=== PATIENT | female | born 1980 | race Caucasian/White ===

== ENCOUNTER → 2017-11-03 11:36 | Outpatient (CLI) | payer OTHER, MEDICAID, SELFPAY ==
[2017-11-09 13:05] LABS: AFP, Serum 50.2 ng/mL; Calc Gestational Age 19.3; Maternal Weight 220 lbs; Number of Fetuses 1; Prev Pregnancies Down Syndrome NOT GIVEN
== END ==
PROVIDERS: PCP Physician Assistant; Visit Provider Specialist
DX: Z3A.19 19 weeks gestation of pregnancy (principal)
CPT/HCPCS: 36415; 82105

== ENCOUNTER → 2017-11-24 14:27 | Outpatient (CLI) | payer OTHER, MEDICAID, SELFPAY ==
--- NOTE | 2017-11-24 14:28 | DI.US.S_ITS ---
PROCEDURE: US OB >= 14 WEEKS FETUS INDICATIONS: anatomic survey OUTSIDE/PRIOR DATING DATA: Last menstrual period (LMP): Not indicated. First dating scan (date and location): 08/30/2017. Estimated date of delivery (JUAN MIGUEL) from first dating scan: 03/22/2018. TECHNIQUE: Real-time scanning was performed of the fetus, with image documentation and biometric measurements. Endovaginal scanning: Not performed COMPARISON: [facility], , OB >= 14 WEEKS FETUS, 11/03/2017, 11:26. FINDINGS: General: A single living intrauterine gestation is present. Presentation: Breech Placenta: Placental position is anterior, without previa. Amniotic fluid index: 14.3 cm, normal range is 5-24 cm. heart rate: 144 beats per minute. Maternal cervical canal: 5.2 cm long. Normal lower limit is 2.5 cm. biometrics: Biparietal diameter: 5.5 CM (22 weeks and 6 days) Head circumference: 21 CM (23 weeks and 0 days) Abdominal circumference: 18.6 CM (23 weeks and 3 days) Femur length: 3.9 CM on (22 weeks and 3 days). Estimated gestational age from initial scan: 23 weeks and one day. Composite gestational age from present scan: 23 weeks and 0 days Estimated weight and percentile: 549 g (33%) Measurement variability for biometric dating: +/- 7 days from 14 weeks to 15 weeks 6 days gestation, +/- 10 days from 16 weeks to 21 weeks 6 days gestation, +/- 2 weeks from 22 weeks to 27 weeks 6 days gestation, +/- 3 weeks for 28 weeks gestation or later. weight reference: 4500 g or EFW >90/95% is considered macrosomia or large for gestational age. EFW <10% is small for gestational age. EFW 5% or less is considered intra-uterine growth restriction. Anatomic survey: Neuro: Ventricles are non-dilated at less than 10 mm. Cisterna magna is normal at 3-11 mm. Cerebellum is normal in size and morphology. Nuchal skin fold: Normal at less than 6 mm between 14-21 weeks gestational age. Face: Not well seen due to lie. Spine: No evidence for spina bifida. Heart: 4-chambered heart is present, with normal ventricular outflow tracts. Diaphragm: Diaphragm is intact. Stomach: Left-sided stomach is present. Kidneys: No hydronephrosis. Normal is less than 5 mm in 2nd trimester, less than 7 mm in 3rd trimester. Cord: 3-vessel cord has orthotopic insertion. Bladder: Normal in size. Extremities: All 4 extremities identified. IMPRESSION: 1. Single intrauterine gestation with estimated gestational age of 23 weeks and 1 day. 2. Facial profile is poorly seen due to lie. Recommend attention to this finding on followup studies. Otherwise sonographically normal anatomy. Dictated by: Fareed Camarillo M.D. on 11/24/2017 at 16:21 Approved by: Fareed Camarillo M.D. on 11/24/2017 at 16:27
== END ==
PROVIDERS: PCP Physician Assistant; Visit Provider Specialist
DX: Z36.89 Encounter for other specified antenatal screening (principal); Z3A.23 23 weeks gestation of pregnancy
CPT/HCPCS: 76811

== ENCOUNTER → 2018-03-02 10:54 | Outpatient (CLI) | payer OTHER, MEDICAID, SELFPAY ==
[2018-03-03 13:58] LABS: Strep Grp B PCR POS for Grp B Strep
== END ==
PROVIDERS: Visit Provider Specialist
DX: Z34.93 Encounter for supervision of normal pregnancy, unspecified, third trimester (principal)
CPT/HCPCS: 87653

== ENCOUNTER 2018-03-28 07:44 | Inpatient (IN) | payer OTHER, MEDICAID, SELFPAY ==
--- NOTE | 2018-03-28 | PATH_ITS ---
[facility] Accession Number: [id number] . 01 Material submitted: . BILATERAL FALLOPIAN TUBES . 02 Diagnosis: Bilateral Fallopian Tubes, Bilateral Tubal Ligation: Two non-fimbriated fallopian tube segments identified at gross examination. Cross sections present on H/E stains. MRV/04/02/2018 . 02 Electronically signed: . Reva Gabriel MD, Pathologist NPI- [id number] . 01 Gross description: . Received in formalin, labeled bilateral fallopian tubes, are two nonfimbriated segments of fallopian tube (segment #1; length-0.9 cm diameter-0.5 cm; segment #2: length-1.0 cm, diameter-0.6 cm) with acharya-purple smooth shiny serosa and acharya unremarkable lumens. No nodules, masses or lesions are identified. Both are serially sectioned and entirely submitted in cassette A1. ([id number]) /MRV . 02 Pathologist provided ICD-10: Z30.2 . 02 CPT . 192262 Performed at: 01 [facility] [address], [place], [place] [id number] MD Ga Patton MD Phone: [phone] Performed at: 02 [facility] [address] [place], [place] [id number] MD Roberta Caballero MD Phone: [phone]
[2018-03-28] MEDS: LACTATED RINGERS 1,000 ML 100 ML IV ×2 (08:30→13:36)
[2018-03-28] MEDS: PENICILLIN G POTASSIUM 5,000,000 UNIT in DEXTROSE 5% IN WATER 250 ML IV (08:30)
[2018-03-28 08:32] LABS: Add Manual Diff / Slide Review NO; Basophils Percent Auto 0.7 % (0-2); Hematocrit 34.6 % (36-46); Hemoglobin 11.2 g/dL (12.0-16.0); Lymphocytes Percent Auto 17.8 % (25-40); Mean Corpuscular HGB Conc 32.4 % (30-36); Mean Corpuscular Hemoglobin 24.7 PG (26-34); Mean Corpuscular Volume 76.2 fL (80-100); Monocytes Percent Auto 7.9 % (3-14); Neutrophils Absolute Auto 6500 /uL (3000-5900); Neutrophils Percent Auto 73.6 % (50-75); Platelet Count 243 X10^3/uL (150-400); Red Blood Cell Count 4.54 X10^6/uL (4.0-5.2); Red Cell Distribution Width 15.4 % (11.6-14.8); White Blood Cell Count 8.8 X10^3/uL (4.5-11.0)
[2018-03-28] MEDS: OXYTOCIN PREMIX 30 UNIT/500 ML PLAST..BAG IV (08:38)
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
[2018-03-28] MEDS: PENICILLIN G POTASSIUM 3,000,000 UNIT/50 ML FROZ.PIGGY 100 UNIT IV (12:15)
[2018-03-28] MEDS: fentaNYL 100 MCG/2 ML INJ IV (12:45)
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
[2018-03-28] MEDS: LACTATED RINGERS 1,000 ML 42 ML IV (17:10)
[2018-03-28] MEDS: BUPIVACAINE 0.5% W/ EPI (PF) VIAL 30 ML INJ (17:47)
[2018-03-28 17:53] VITALS: BP 100/53
[2018-03-28 18:06] VITALS: BP 116/67; PULSE 111; RESP 11; TEMP 36.8; O2SAT 97
[2018-03-28 18:11] VITALS: BP 112/67; PULSE 108; RESP 11; O2SAT 98
[2018-03-28 18:16] VITALS: BP 113/68; PULSE 93; RESP 10; O2SAT 99
[2018-03-28 18:21] VITALS: BP 106/68; PULSE 90; RESP 8; O2SAT 98
[2018-03-28 18:26] VITALS: BP 108/67; PULSE 78; RESP 10; O2SAT 98
--- NOTE | 2018-03-28 18:28 | SUR.PHASEI ---
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
[2018-03-28] MEDS: LANOLIN OINT 7 GM 1 APPLIC TOP (21:46)
[2018-03-28] MEDS: DERMOPLAST SPRAY 20% 60 ML 1 SPRAY TOP (21:46)
[2018-03-29 00:28] VITALS: TEMP 36.9
[2018-03-29] MEDS: IBUPROFEN 600 MG TABLET PO ×2 (00:28→06:26)
[2018-03-29 01:00] VITALS: TEMP 36.9
[2018-03-29 06:26] VITALS: TEMP 36.9
[2018-03-29] MEDS: DOCUSATE 250 MG CAPSULE PO (08:48)
[2018-03-29] MEDS: FERROUS GLUCONATE 324 MG TABLET PO (08:48)
[2018-03-29] MEDS: PRENATAL VIT,CALC/IRON/FOLIC 1 TABLET 1 TAB PO (08:48)
[2018-03-29 12:09] VITALS: BP 108/67; PULSE 78; RESP 18; TEMP 36.9
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
--- NOTE | 2018-04-06 11:26 | PM.GYNOP.1 ---
Operative Date/Time/Diagnoses Date of procedure: 03/28/18 Time of procedure: 18:15 Pre-op diagnosis: Multiparity Desires permanent sterilization Procedure: Procedures Operation Date: 03/28/18 16:00 Actual Procedures Side Surgeon p Post Bilateral Tubal Ligation Rosario Hirsch MD Indications: Multiparity Desires permanent sterilization Surgeon: Rosario Hirsch Anesthesia Type: General Operative Notes Findings: Fundus at U -1 Normal uterus, tubes, and ovaries Closure Type: primary Specimen(s): portion of left tube and portion of right tube Estimated blood loss (mL): 5 Blood products transfused: none Procedure in detail: After informed consent was obtained, the patient was taken to the operating room where she was placed in the dorsal supine position. After adequate general endotracheal anesthesia was achieved she was prepped and draped in the usual sterile fashion. 6 cc of 0.5% Marcaine with epinephrine were injected in the umbilical fold and a 2 cm incision was made. This was carried down to the fascia and the fascia was nicked in the midline. The fascial incision was extended bilaterally with the Higgins scissors. The peritoneum was grasped between 2 hemostats and entered sharply with the Metzenbaum scissors. The uterus found to be at U -1. The left tube was grasped and carried out to the fimbriated end. 2[address] to the distal end a with 3 cm segment of tube was ligated x2 with 0 plain chromic. A 1-1/2 cm segment of tube was excised. The ends of the tube were cauterized for hemostasis. Hemostasis was achieved. This was repeated on the patient's right tube. The tubes were returned to the abdomen. The fascia was reapproximated using 0 Vicryl in a running fashion. The subcutaneous layer was closed with 3 O Vicryl with 2 simple interrupted sutures. The skin was closed with 4 0 undyed Vicryl in a subcuticular fashion. Steri-Strips, 2 x 2, and op site was placed. Sponge, lap, and instrument counts were correct x2. The patient tolerated the procedure well, and was taken to PACU in stable condition. Complications: none Post-operative Condition: stable Disposition: PACU Plan for aftercare: center after recovery
== END 2018-03-29 14:00 | disposition home or self-care (01) | DRG 541 ==
PROVIDERS: Obstetrics & Gynecology; Specialist; Admitting Provider Family Medicine; Visit Provider Family Medicine
PROC: 0UB70ZZ Excision of Bilateral Fallopian Tubes, Open Approach (ICD-10-PCS; CPT 58605; principal; 2018-03-28 16:00)
DX: O9A.313 Physical abuse complicating pregnancy, third trimester (principal); O99.824 Streptococcus B carrier state complicating childbirth; Z3A.40 40 weeks gestation of pregnancy; Z37.0 Single live birth; O70.1 Second degree perineal laceration during delivery; O69.81X0 Labor and delivery complicated by cord around neck, without compression, not applicable or unspecified; Z30.2 Encounter for sterilization
CPT/HCPCS: 01967; 59050; 59409; 85025; 86850; 86900; 86901; G0379; J1100; J1885; J2405; J2540; J2590; J2704; J3010

== ENCOUNTER → 2019-11-22 13:06 | Outpatient (CLI) | payer OTHER, MEDICAID, SELFPAY ==
[2019-11-22 13:53] LABS: Add Manual Diff / Slide Review NO; Basophils Absolute Auto 0 /uL (0-100); Basophils Percent Auto 0.5 % (0-2); Eosinophils Absolute Auto 0 /uL (0-450); Hematocrit 43.7 % (36-46); Hemoglobin 14.9 g/dL (12.0-16.0); Lymphocytes Absolute Auto 1700 /uL (1100-4500); Lymphocytes Percent Auto 27.3 % (25-40); Mean Corpuscular HGB Conc 34.2 % (30-36); Mean Corpuscular Hemoglobin 29.9 PG (26-34); Mean Corpuscular Volume 87.4 fL (80-100); Monocytes Absolute Auto 500 /uL (0-900); Monocytes Percent Auto 7.6 % (3-14); Neutrophils Absolute Auto 3900 /uL (1500-7000); Neutrophils Percent Auto 64.6 % (50-75); Platelet Count 219 X10^3/uL (150-400); Red Blood Cell Count 4.99 X10^6/uL (4.0-5.2); Red Cell Distribution Width 13.3 % (11.6-14.8)
[2019-11-22 14:47] LABS: Alanine Aminotransferase 24 IU/L (<35); Albumin 4.7 g/dL (3.5-5.0); Albumin Globulin Ratio 1.9 (1.0-2.8); Alkaline Phosphatase 53 U/L (38-126); Aspartate Aminotransferase 28 IU/L (14-36); BUN Creatinine Ratio 21.4 (6-22); Bilirubin Total 0.6 mg/dL (0.2-1.3); Blood Urea Nitrogen 18 mg/dL (7-17); Calcium 10.3 mg/dL (8.4-10.2); Carbon Dioxide 29 mmol/L (22-32); Chloride 102 mmol/L (98-107); Estimated Glomerular Filt Rate > 60.0 mL/min (>60); Globulin 2.5 g/dL (1.7-4.1); Glucose 95 mg/dL (70-100); HEMOLYSIS < 15 (0-50); Potassium 4.5 mmol/L (3.4-5.1); Sodium 139 mmol/L (137-145); Total Protein 7.2 g/dL (6.3-8.2)
[2019-11-22 15:17] LABS: Thyroid Stimulating Hormone 1.51 uIU/mL (0.47-4.68)
== END ==
PROVIDERS: PCP Family Medicine; Referring Provider Family Medicine; Visit Provider Family Medicine
DX: I95.9 Hypotension, unspecified (principal)
CPT/HCPCS: 36415; 80053; 84439; 84443; 84481; 85025

== ENCOUNTER → 2020-08-05 14:44 | Outpatient (CLI) | payer OTHER, MEDICAID, SELFPAY ==
--- NOTE | 2020-08-05 14:46 | DI.RAD.S_ITS ---
PROCEDURE: XR LUMBAR SPINE 2-3V INDICATIONS: low back pain with sciatica TECHNIQUE: 3 views of the lumbar spine were acquired. COMPARISON: None. FINDINGS: Bones: 5 [id number] vertebrae are present. There is mildly abnormal bony alignment with convex leftward scoliosis centered at L3-4. No vertebral body compression fractures. No suspicious bony lesions. Soft tissues: Overlying bowel gas pattern is normal. No suspicious soft tissue calcifications. IMPRESSION: A small degree of convex leftward scoliosis is centered at L3-4 and there is mild degenerative disc disease L5-S1 with mild to moderate facet osteoarthritis at that level. Dictated by: Presley Ramirez M.D. on 08/05/2020 at 15:30 Approved by: Presley Ramirez M.D. on 08/05/2020 at 15:31
== END ==
PROVIDERS: PCP Family Medicine; Referring Provider Family Medicine; Visit Provider Family Medicine
DX: M41.86 Other forms of scoliosis, lumbar region (principal); M47.26 Other spondylosis with radiculopathy, lumbar region; M51.16 Intervertebral disc disorders with radiculopathy, lumbar region
CPT/HCPCS: 72100

== ENCOUNTER 2021-03-02 21:19 | Emergency (ER) | payer OTHER, MEDICAID, SELFPAY ==
[2021-03-02 21:27] VITALS: BP 122/73; BP 122/77; PULSE 90; PULSE 92; RESP 14; RESP 22; O2SAT 100; O2SAT 99
[2021-03-02 21:30] VITALS: PULSE 90; RESP 12; O2SAT 99
[2021-03-02 21:32] VITALS: BP 122/73; PULSE 92; RESP 12; TEMP 36.9; O2SAT 99
--- NOTE | 2021-03-02 21:46 | DI.RAD.S_ITS ---
PROCEDURE: XR CHEST 1V INDICATIONS: chest pain TECHNIQUE: One view of the chest was acquired. COMPARISON: [facility], CR, XR LUMBAR SPINE 2-3V, 08/05/2020, 14:51. FINDINGS: Surgical changes and devices: None. Lungs and pleura: Lungs are clear. No pleural effusions or pneumothorax. Mediastinum: Mediastinal contours appear normal. Heart size is normal. Bones and chest wall: No suspicious bony lesions. Overlying soft tissues appear unremarkable. Mild rightward curvature of the thoracic spine. IMPRESSION: No acute cardiopulmonary abnormality Dictated by: Francis Romano M.D. on 03/02/2021 at 22:05 Approved by: Francis Romano M.D. on 03/02/2021 at 22:06
--- NOTE | 2021-03-02 21:49 | ED.CHESTPAIN ---
HPI - Chest Pain General Chief Complaint: Chest Pain Stated Complaint: chest pain, irratic heart rate, fatigue Time Seen by Provider: 03/02/21 21:38 Source: patient Mode of arrival: Ambulatory History of Present Illness HPI narrative: 40-year-old female who is here for evaluation of a couple days of some irratic heart rate which she describes as her going fast and then slow. Fatigue, chest discomfort, headaches. She has had history is of arrhythmias in the past. Has seen cardiology. There was some discussion about an ablation but she decided not to proceed with his procedure. Related Data Home Medications Medication Instructions Recorded Confirmed [MAGNESIUM COMPLEX] 1 tab PO QDAY #0 07/27/17 08/05/20 [VITAMIN C] 2 cap PO QDAY #0 07/27/17 08/05/20 [VITAMIN D3] PO QDAY #0 07/27/17 08/05/20 Previous Rx's Medication Instructions Recorded celecoxib 100 mg capsule 100 mg PO BID #30 cap 08/05/20 Allergies Allergy/AdvReac Type Severity Reaction Status Date / Time metoprolol [METOPROLOL] Allergy Intermediate FULL BODY Verified 08/05/20 14:15 RASH AND H/A Review of Systems Constitutional Constitutional: Reports system reviewed and no additional complaints, except as documented, Denies fever(s) and Reports headache(s) Eyes Eyes: Denies change in vision ENT Ears, Nose, Mouth, and Throat: Reports system reviewed and no additional complaints, except as documented and Reports headache(s) Cardiovascular Cardiovascular: Reports as per HPI and Reports system reviewed and no additional complaints, except as documented Respiratory Respiratory: Reports as per HPI and Reports system reviewed and no additional complaints, except as documented Gastrointestinal Gastrointestinal: Reports as per HPI and Reports system reviewed and no additional complaints, except as documented Genitourinary Genitourinary: Reports system reviewed and no additional complaints, except as documented Musculoskeletal Musculoskeletal: Reports system reviewed and no additional complaints, except as documented Integumentary/Breasts Skin/Breast: Reports system reviewed and no additional complaints, except as documented Neurologic Neurologic: Reports system reviewed and no additional complaints, except as documented and Reports headache(s) Psychiatric Psychiatric: Reports system reviewed and no additional complaints, except as documented Hematologic/Lymphatic On Anticoagulants: No Patient History Medical History Dizziness Venous insufficiency of both lower extremities Family History Father No problems noted. Grandfather Diabetes mellitus Grandmother Hypothyroidism Stroke Mother No problems noted. Grandmother No problems noted. Family/Other Hypothyroidism Family/Other No problems noted. Social History household members: family and children Smoking Status: Never smoker Smoking Status: Never smoker Exam Initial Vital Signs Initial Vital Signs: Vital Signs Pulse Rate 92 H 03/02/21 21:27 Respiratory Rate 22 03/02/21 21:27 Blood Pressure 122/77 03/02/21 21:27 Pulse Oximetry 100 03/02/21 21:27 Const General: cooperative, healthy appearing and comfortable HENMT Head: normal to inspection and normocephalic Neck Neck: normal visual inspection Chest Chest: normal inspection of the chest Resp Effort & Inspection: normal respiratory effort Auscultation: clear to auscultation bilaterally Cardio Rate: regular rate Rhythm: regular rhythm GI Inspection: normal to inspection Palpation: soft Back/Spine/Pelvis Back: normal to inspection Skin Lesions: no lesions Rashes: no rashes Neuro General: patient alert, patient awake and patient oriented x3 Extrem General: normal to inspection and capillary refill normal Psych Appearance: grossly normal and well kempt Course Orders Ordered: ED Orders 03/02/21 21:40 Complete Blood Count AUTO DIFF Stat Comprehensive Metabolic Panel Stat Lipase Stat Troponin & CK Cardiac Panel Stat 03/02/21 21:45 EKG-12 Lead Stat 03/02/21 21:46 XR chest 1V Stat Vital Signs Vital signs: Vital Signs - 8 hr 03/02/21 21:32 03/02/21 22:00 03/02/21 22:30 Temperature 98.5 F Pulse Rate 92 H 75 78 Respiratory Rate 12 16 12 Blood Pressure [Left Arm] 122/73 Pulse Oximetry 99 97 97 MDM - Chest Pain Lab Data Attestation: I reviewed the patient's lab results. Result diagrams: 03/02/21 21:40 03/02/21 21:40 Labs: Lab Results 03/02/21 03/02/21 Range/Units 21:40 21:40 WBC 7.4 (4.5-11.0) X10^3/uL RBC 5.08 (4.0-5.2) X10^6/uL Hgb 14.9 (12.0-16.0) g/dL Hct 43.9 (36-46) % MCV 86.4 (80-100) fL MCH 29.4 (26-34) PG MCHC 34.0 (30-36) % RDW 13.7 (11.6-14.8) % Plt Count 216 (150-400) X10^3/uL Neut % (Auto) 72.2 (50-75) % Lymph % (Auto) 17.8 L (25-40) % [place] % (Auto) 7.8 (3-14) % Eos % (Auto) 0.4 L (2-4) % Baso % (Auto) 1.8 (0-2) % Neut # (Auto) 5400 (8080-4381) /uL Lymph # (Auto) 1300 (2833-6576) /uL [place] # (Auto) 600 (0-900) /uL Eos # (Auto) 0 (0-450) /uL Baso # (Auto) 100 (0-100) /uL Sodium 141 (137-145) mmol/L Potassium 3.7 (3.4-5.1) mmol/L Chloride 103 (98-107) mmol/L Carbon Dioxide 28 (22-32) mmol/L BUN 18 H (7-17) mg/dL Creatinine 1.09 H (0.52-1.04) mg/dL Estimated GFR 55.6 L (>60) mL/min BUN/Creatinine Ratio 16.5 (6-22) Glucose 111 H (70-100) mg/dL Calcium 9.7 (8.4-10.2) mg/dL Total Bilirubin 0.4 (0.2-1.3) mg/dL AST 23 (14-36) IU/L ALT 19 (<35) IU/L Alkaline Phosphatase 50 (38-126) U/L Total Creatine Kinase 69 (30-135) U/L CK-MB (CK-2) TNP CK-MB (CK-2) Rel Index TNP Troponin I < 0.012 (0.01-0.034) ng/mL Total Protein 8.1 (6.3-8.2) g/dL Albumin 4.6 (3.5-5.0) g/dL Globulin 3.5 (1.7-4.1) g/dL Albumin/Globulin Ratio 1.3 (1.0-2.8) Lipase 96 (23-300) U/L Imaging Data Chest x-ray: Radiologist's Impression: [address] [id number] ReportSigned Patient: Roberta Bo MMR#: [id number]: 1980Acct:[id number]/Sex: 40 / FDate of Service: 03/02/21Loc: EDAccession Number: [id number] Procedure: XR chest 1V Ordering Provider: Judd Lawrence D.O. PROCEDURE: XR CHEST 1V INDICATIONS: chest pain TECHNIQUE: One view of the chest was acquired. COMPARISON: [facility], CR, XR LUMBAR SPINE 2-3V, 08/05/2020, 14:51. FINDINGS: Surgical changes and devices: None. Lungs and pleura: Lungs are clear. No pleural effusions or pneumothorax. Mediastinum: Mediastinal contours appear normal. Heart size is normal. Bones and chest wall: No suspicious bony lesions. Overlying soft tissues appear unremarkable. Mild rightward curvature of the thoracic spine. IMPRESSION: No acute cardiopulmonary abnormality Dictated by: Francis Romano M.D. on 03/02/2021 at 22:05 Approved by: Francis Romano M.D. on 03/02/2021 at 22:06 ECG Data Attestation: I personally reviewed and interpreted this ECG as follows: Prior ECG tracings: available for review Interpretation: Sinus rhythm Ventricular rate 96 Normal axis Normal QRS Normal QTC Nonspecific ST T wave changes MDM Narrative Medical decision making narrative: Labs are unremarkable come EKG is unremarkable, chest x-ray is unremarkable, physical exam is unremarkable, I did discuss with her regarding her symptoms. Did discuss the limitations of the EKG and cardiac monitoring here stating that I would not be able to tell exactly what her heart rate and rhythm were when she was feeling the palpitations a couple days ago. 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 I feel patient can be safely discharged home without further workup here in the emergency department. She was given return precautions and follow-up instructions. She expressed understanding and agreement Discharge Plan Departure Patient Disposition: Home Clinical Impression: Atypical chest pain, Palpitations Instructions: DI for Atypical Chest Pain Activity Restrictions/Additional Instructions: Your workup here in the emergency department is very reassuring. I recommend that you contact your primary doctor for a follow-up and also recommend that you follow-up with Cardiology. Return to the emergency department for any new or worsening symptoms Prescriptions: No Action celecoxib 100 mg capsule 100 mg PO BID Qty: 30 RF: 2 [VITAMIN C] 2 cap PO QDAY Qty: 0 RF: 0 [VITAMIN D3] PO QDAY Qty: 0 RF: 0 [MAGNESIUM COMPLEX] 1 tab PO QDAY Qty: 0 RF: 0 Referrals: Carmita Montes De Oca MD [Primary Care Provider] -
[2021-03-02 21:58] LABS: Add Manual Diff / Slide Review NO; Alanine Aminotransferase 19 IU/L (<35); Albumin 4.6 g/dL (3.5-5.0); Albumin Globulin Ratio 1.3 (1.0-2.8); Alkaline Phosphatase 50 U/L (38-126); Aspartate Aminotransferase 23 IU/L (14-36); BUN Creatinine Ratio 16.5 (6-22); Basophils Absolute Auto 100 /uL (0-100); Basophils Percent Auto 1.8 % (0-2); Bilirubin Total 0.4 mg/dL (0.2-1.3); Blood Urea Nitrogen 18 mg/dL (7-17); Calcium 9.7 mg/dL (8.4-10.2); Carbon Dioxide 28 mmol/L (22-32); Chloride 103 mmol/L (98-107); Creatine Kinase 69 U/L (30-135); Eosinophils Absolute Auto 0 /uL (0-450); Eosinophils Percent Auto 0.4 % (2-4); Estimated Glomerular Filt Rate 55.6 mL/min (>60); Globulin 3.5 g/dL (1.7-4.1); Glucose 111 mg/dL (70-100); HEMOLYSIS < 15 (0-50); Hematocrit 43.9 % (36-46); Hemoglobin 14.9 g/dL (12.0-16.0); Lipase 96 U/L (23-300); Lymphocytes Absolute Auto 1300 /uL (1100-4500); Lymphocytes Percent Auto 17.8 % (25-40); Mean Corpuscular Hemoglobin 29.4 PG (26-34); Mean Corpuscular Volume 86.4 fL (80-100); Monocytes Absolute Auto 600 /uL (0-900); Monocytes Percent Auto 7.8 % (3-14); Neutrophils Absolute Auto 5400 /uL (1500-7000); Neutrophils Percent Auto 72.2 % (50-75); Platelet Count 216 X10^3/uL (150-400); Potassium 3.7 mmol/L (3.4-5.1); Red Blood Cell Count 5.08 X10^6/uL (4.0-5.2); Red Cell Distribution Width 13.7 % (11.6-14.8); Sodium 141 mmol/L (137-145); Total Protein 8.1 g/dL (6.3-8.2); White Blood Cell Count 7.4 X10^3/uL (4.5-11.0)
[2021-03-02 22:00] VITALS: PULSE 75; RESP 16; O2SAT 97
[2021-03-02 22:10] LABS: Troponin I < 0.012 ng/mL (0.01-0.034)
[2021-03-02 22:30] VITALS: PULSE 78; RESP 12; O2SAT 97
== END 2021-03-02 22:50 | disposition home or self-care (01) ==
PROVIDERS: Emergency Provider Emergency Medicine; PCP Family Medicine
DX: R07.89 Other chest pain (principal); R00.2 Palpitations
CPT/HCPCS: 36415; 71045; 80053; 82550; 83690; 84484; 85025; 93005; 99284

== ENCOUNTER → 2022-11-02 16:32 | Outpatient (CLI) | payer OTHER, MEDICAID, SELFPAY ==
[2022-11-02 17:46] LABS: BUN Creatinine Ratio 24.4 (6-22); Blood Urea Nitrogen 20 mg/dL (7-17); Calcium 9.3 mg/dL (8.4-10.2); Carbon Dioxide 27 mmol/L (22-32); Chloride 100 mmol/L (98-107); Estimated Glomerular Filt Rate > 60 mL/min (>60); Glucose 88 mg/dL (70-100); HEMOLYSIS < 15 (0-50); Potassium 3.8 mmol/L (3.4-5.1); Sodium 136 mmol/L (137-145)
[2022-11-02 17:58] LABS: Free T3, Triiodothyronine Free 3.92 pg/mL (2.77-5.27)
[2022-11-02 18:11] LABS: Thyroid Stimulating Hormone 1.05 uIU/mL (0.47-4.68)
[2022-11-03 06:17] LABS: Labcorp Hemoglobin (Hb) A1c 5.4 % (4.8-5.6)
== END ==
PROVIDERS: PCP Family Medicine; Referring Provider Family Medicine; Visit Provider Family Medicine
DX: R53.83 Other fatigue (principal); T50.B95A Adverse effect of other viral vaccines, initial encounter; R79.82 Elevated C-reactive protein (CRP)
CPT/HCPCS: 36415; 80048; 83036; 84439; 84443; 84481

== ENCOUNTER → 2023-12-13 14:22 | Outpatient (CLI) | payer OTHER, MEDICAID, SELFPAY | PROVIDERS: PCP Family Medicine; Visit Provider Family Medicine | DX: B37.2 Candidiasis of skin and nail (principal) | CPT/HCPCS: 87070; 87205; 87210 ==

== ENCOUNTER → 2023-12-13 14:27 | Outpatient (CLI) | payer OTHER, MEDICAID, SELFPAY ==
[2023-12-13 15:11] LABS: Hemoglobin A1C% w Est Avg Glu 5.5 % (4.0-6.0)
[2023-12-13 15:21] LABS: Alanine Aminotransferase 38 IU/L (<35); Albumin 4.6 g/dL (3.5-5.0); Albumin Globulin Ratio 1.5 (1.0-2.8); Alkaline Phosphatase 45 U/L (38-126); Aspartate Aminotransferase 32 IU/L (14-36); Bilirubin Total 0.6 mg/dL (0.2-1.3); Blood Urea Nitrogen 24 mg/dL (7-17); Calcium 9.4 mg/dL (8.4-10.2); Carbon Dioxide 29 mmol/L (22-32); Chloride 103 mmol/L (98-107); Estimated Glomerular Filt Rate > 60 mL/min (>60); Glucose 99 mg/dL (70-100); HEMOLYSIS < 15 (0-50); Potassium 4.1 mmol/L (3.4-5.1); Sodium 138 mmol/L (137-145); Total Protein 7.6 g/dL (6.3-8.2)
== END ==
PROVIDERS: PCP Family Medicine; Referring Provider Family Medicine; Visit Provider Family Medicine
DX: B37.2 Candidiasis of skin and nail
CPT/HCPCS: 36415; 80053; 83036; 83525; 87070; 87205; 87210

== ENCOUNTER → 2023-12-27 17:51 | Outpatient (CLI) | payer OTHER, MEDICAID, SELFPAY ==
[2023-12-27 18:41] LABS: Alanine Aminotransferase 37 IU/L (<35); Albumin 4.5 g/dL (3.5-5.0); Albumin Globulin Ratio 1.4 (1.0-2.8); Alkaline Phosphatase 47 U/L (38-126); Aspartate Aminotransferase 30 IU/L (14-36); BUN Creatinine Ratio 22.8 (6-22); Bilirubin Total 0.5 mg/dL (0.2-1.3); Blood Urea Nitrogen 26 mg/dL (7-17); Calcium 9.6 mg/dL (8.4-10.2); Carbon Dioxide 26 mmol/L (22-32); Chloride 102 mmol/L (98-107); Estimated Glomerular Filt Rate > 60 mL/min (>60); Globulin 3.2 g/dL (1.7-4.1); Glucose 93 mg/dL (70-100); HEMOLYSIS < 15 (0-50); Potassium 4.2 mmol/L (3.4-5.1); Sodium 135 mmol/L (137-145); Total Protein 7.7 g/dL (6.3-8.2)
== END ==
PROVIDERS: PCP Family Medicine; Referring Provider Family Medicine; Visit Provider Family Medicine
DX: R74.8 Abnormal levels of other serum enzymes (principal)
CPT/HCPCS: 36415; 80053

== ENCOUNTER → 2024-02-19 15:17 | Outpatient (CLI) | payer OTHER, MEDICAID, SELFPAY ==
--- NOTE | 2024-02-19 15:18 | DI.US.S_ITS ---
PROCEDURE: US VENOUS INSUFFICIENCY BILAT INDICATIONS: VARICOSE VEINS TECHNIQUE: Real time scanning was performed of the lower extremity venous system, with imaging documentation, as well as Color and pulse Doppler interrogation. COMPARISON: None. FINDINGS: RIGHT LOWER EXTREMITY: The deep veins are normally compressible, and free of intraluminal thrombus. Color and pulse Doppler demonstrate normal intravascular flow. There is normal augmentation with distal compression maneuver. Reversal of flow was visualized in the common femoral and superficial femoral veins. Greater saphenous vein (GSV): Normally 4 mm or less in diameter, with any reflux less than 0.5 seconds. Saphenofemoral junction (SFJ): 8 mm. Flow reversal lasting 3.8 seconds Proximal GSV: 9 mm. Flow reversal lasting 3.8 seconds Mid GSV: 8 mm. Flow reversal lasting 1.8 seconds Distal GSV: 7 mm. Flow reversal lasting 3.2 seconds Calf GSV: 6 mm, Flow reversal lasting 0.7 seconds Anterior accessory GSV (AAGSV): Anatomic variant not present across anterior thigh. Small saphenous vein (SSV): Posterior calf, draining into popliteal vein. Posterior calf: 5 mm. Flow reversal lasting 1.1 seconds Vein of Giacomini (posterior thigh connection between GSV and SSV): Anatomic variant not seen. LEFT LOWER EXTREMITY: The deep veins are normally compressible, and free of intraluminal thrombus. Color and pulse Doppler demonstrate normal intravascular flow. There is normal augmentation with distal compression maneuver. Positive reversal of flow noted in the common femoral vein. Greater saphenous vein (GSV): Normally 4 mm or less in diameter, with any reflux less than 0.5 seconds. Saphenofemoral junction (SFJ): 9 mm. Flow reversal lasting 5.1 seconds Proximal GSV: 9 mm. Flow reversal lasting 2.5 seconds Mid GSV: 6 mm. Flow reversal lasting 3.7 seconds Distal GSV: 5 mm. Flow reversal lasting 2.1 seconds Calf GSV: 5 mm. Flow reversal lasting 1.1 seconds Anterior accessory GSV (AAGSV): Anatomic variant not present across anterior thigh. Small saphenous vein (SSV): Posterior calf, draining into popliteal vein. Posterior calf: 3 mm. No reversal Vein of Giacomini (posterior thigh connection between GSV and SSV): Anatomic variant not seen. IMPRESSION: Dilated greater saphenous vein as above. Intermittent reversal flow noted throughout the superficial system bilaterally. Approved by: Gianfranco Foss M.D. on 02/21/2024 at 10:40
== END ==
PROVIDERS: PCP Family Medicine; Referring Provider Family Medicine; Visit Provider Family Medicine
DX: I83.93 Asymptomatic varicose veins of bilateral lower extremities (principal); I87.2 Venous insufficiency (chronic) (peripheral)
CPT/HCPCS: 93970

== ENCOUNTER → 2024-03-19 12:51 | Outpatient (CLI) | payer OTHER, MEDICAID, SELFPAY ==
--- NOTE | 2024-03-19 12:53 | DI.RAD.S_ITS ---
PROCEDURE: XR ANKLE RT MIN 3V INDICATIONS: struck lateral ankle against brick , eversion injury 01/28 TECHNIQUE: 3 views of the ankle were acquired. COMPARISON: None. FINDINGS: Bones: No fractures or dislocations. Ankle mortise is normally aligned. No suspicious bony lesions. Soft tissues: No tibiotalar joint effusion. Achilles tendon appears normal. IMPRESSION: No acute bony abnormality or significant effusion. Approved by: Gianfranco Foss M.D. on 03/19/2024 at 17:11
== END ==
PROVIDERS: PCP Family Medicine; Referring Provider Physician Assistant Medical; Visit Provider Physician Assistant Medical
DX: S90.01XA Contusion of right ankle, initial encounter (principal); X58.XXXA Exposure to other specified factors, initial encounter
CPT/HCPCS: 73610

== ENCOUNTER → 2024-04-15 16:51 | Outpatient (CLI) | payer OTHER, MEDICAID, SELFPAY ==
--- NOTE | 2024-04-15 16:52 | DI.MRI.S_ITS ---
PROCEDURE: MR ANKLE RT WO CON INDICATIONS: Disorder of ligament, right ankle TECHNIQUE: Noncontrast sagittal T1 spin echo and T2 fast spin echo with fat saturation, axial proton density fast spin echo and T2 fast spin echo with fat saturation, coronal T1 spin echo and T2 fast spin echo with fat saturation through the ankle/hindfoot. COMPARISON: [facility], CR, XR ANKLE RT MIN 3V, 03/19/2024, 13:00. FINDINGS: Image quality: Excellent. Bones and joints: No bone marrow contusions or fractures. No hindfoot coalitions. No osteochondral injuries of the talar dome. Small tibiotalar joint effusion, no loose bodies. Medial structures: The posterior tibialis tendon is thickened at the level of distal talus and talonavicular joint with small amount of fluid distending tendon sheath. The flexor digitorum longus, and flexor hallucis longus tendons are intact. The posterior tibial neurovascular bundle appears normal within the tarsal tunnel, without extrinsic mass effect. The deltoid ligament and spring ligament are mildly thickened. Lateral structures: The anterior talofibular ligament is markedly thickened with intrasubstance T2 hyperintense signal near its lateral insertion. The calcaneal fibular ligament and posterior talofibular ligament are mildly thickened with subtle intrasubstance T2 hyperintense signal. More superiorly, the anterior and posterior tibiofibular ligaments appear intact, as is the intermalleolar ligament. The tibiofibular syndesmosis is normal in width at 2 mm or less. The peroneus longus and brevis tendons are mildly thickened with fluid distending tendon sheath at the level of lateral malleolus tip extending to the level of cuboid. No signal abnormality is seen within the sinus tarsi. Anterior structures: The tibialis anterior, extensor hallucis longus, and extensor digitorum longus tendons appear intact. The dorsal talonavicular ligament appears intact. Posterior and plantar structures: Achilles tendon is intact. Medial and lateral bands of the plantar fascia are of normal thickness. No abductor digiti quinti muscle atrophy to suggest Knowles neuropathy. IMPRESSION: 1. No marrow edema. No fracture or dislocation. No osteochondral injuries of talar dome. Small joint effusion, no loose bodies. 2. Low-grade tenosynovitis involving posterior tibialis tendon near its distal insertion. 3. Low-grade medial ankle ligament sprain. 4. Moderate sprain/partial-thickness tear involving anterior talofibular ligament near its lateral insertion. Low-grade sprain/intrasubstance partial-thickness tear involving posterior talofibular ligament and calcaneofibular ligament. No full-thickness ligament rupture. 5. Mild tenosynovitis involving peroneus tendons at the level of lateral malleolus tip extending to the level of cuboid. Dictated by: Dk Agudelo M.D. on 04/16/2024 at 12:59 Approved by: Dk Agudelo M.D. on 04/16/2024 at 13:16
== END ==
LOC: MRI 16:52
PROVIDERS: PCP Family Medicine; Referring Provider Physician Assistant; Visit Provider Physician Assistant
DX: S93.491A Sprain of other ligament of right ankle, initial encounter (principal); S93.411A Sprain of calcaneofibular ligament of right ankle, initial encounter; M65.971 Unspecified synovitis and tenosynovitis, right ankle and foot; M24.271 Disorder of ligament, right ankle; M25.471 Effusion, right ankle
CPT/HCPCS: 73721